=== PATIENT | female | born 1970 | race Caucasian/White ===

== ENCOUNTER 2017-01-13 21:35 | Observation (INO) | payer OTHER ==
[~2017-01-13] VITALS: Ht 167.6 cm; Wt 98.9 kg
--- NOTE | 2017-01-13 23:21 | NUR ---
PT TO ED WITH C/O HEMATURIA X4 DAYS, WITH INCREASED ARUNA LOWER BACK PAIN, CONSTIPATION WITH LAST BM 7 DAYS AGO. PT STATES TO FEELING GEN WEAKNESS. PT STATES TO URINARY FREQUENCY, RETENTION, AND URGENCY. PT A&OX4,NO ACUTE DSITRSS NOTED, RESP EVEN AND UNLABORED, AMBULATED TO RESTROOM TO PROVIDE URINE SPECIMEN.
[2017-01-14 00:29] LABS: UA SPECIFIC GRAVITY 1.025 (1.005-1.035); microscopic required? YES; urine erythrocyte 3+ (NEGATIVE)
--- NOTE | 2017-01-14 00:35 | NUR ---
PT AMBULATED TO RESTROOM TO PROVIDE URINE SAMPLE
--- NOTE | 2017-01-14 00:36 | NUR ---
PT OOB TO RESTROOM
[2017-01-14 00:39] LABS: BASOPHIL % 0.5 % (0-2)
[2017-01-14 00:43] LABS: CALCIUM 8.8 mg/dL (8.5-10.1); CARBON DIOXIDE 22.4 mmol/L (21-32); CHLORIDE SERUM 106 mmol/L (98-107); CREATININE SERUM 0.8 mg/dL (0.6-1.0); GFR1 > 60 mL/min; GLUCOSE SERUM 96 mg/dL (74-106); POTASSIUM SERUM 3.4 mmol/L (3.5-5.1); SODIUM SERUM 141 mmol/L (136-145)
[2017-01-14 00:46] LABS: PLATELET COUNT 322 x10^3mcL (130-400); RED CELL DISTRIBUTION WIDTH 14.3 % (11.5-14.5)
[2017-01-14 00:49] LABS: ALBUMIN 3.8 g/dL (3.4-5.0); ALKALINE PHOSPHATASE 70 U/L (46-116); ALT/SGPT 26 U/L (14-59); AST/SGOT 18 U/L (15-37); BILIRUBIN TOTAL 0.2 mg/dL (0.20-1.00); TOTAL PROTEIN, SERUM 7.1 g/dL (6.4-8.2); URIC ACID 3.2 mg/dL (2.6-6.0)
[2017-01-14] MEDS ORDERED: CYMBALTA20 M1 PO (02:09)
[2017-01-14] MEDS ORDERED: WEL75 (02:09)
[2017-01-14] MEDS ORDERED: TOPAMAX100 MG PO (02:09)
[2017-01-14] MEDS ORDERED: SYNTHROID0.125 MG PO (02:10)
--- NOTE | 2017-01-14 02:35 | NUR ---
REPORT GIVEN TO BERENICE MARTIN TO ASSUME CARE OF PT.
--- NOTE | 2017-01-14 02:52 | NUR ---
PT MEDICATED FOR PAIN AT THIS TIME. DUE TO C/O BACK PAIN RATING /10. VERONICA NG MADE AWARE.
--- NOTE | 2017-01-14 03:00 | NUR ---
RECEIVED PT FROM ED VIA GURNEY ACCOMPANIED BY NURSE. C/O BACK PAIN. PT STATED SHE DOESN'T NEED PAIN MEDICATION AT THIS TIME SINCE SHE JUST GOT MEDICATED IN ER. NO RESPIRATORY DISTRESS ON ROOM AIR. IV ON LAC, NS INFUSING. ORIENTED PT TO ROOM. DEMONSTRATED HOW TO CALL IF ASSISTANCE IS NEEDED. BED IN LOWEST POSITION. SIDE RAILS UP X2. CALL LIGHT WITHIN REACH. AT BEDSIDE. WILL CONTINUE TO MONITOR.
--- NOTE | 2017-01-14 03:07 | NUR ---
PT TRANSFERRED TO TELE BED VIA [facility] WITH RN ANTONI AND EMT REYNALDO AT PT SIDE. PT ON CM AT TIME OF TRANSFER. PT A&XO4,NO ACUTE DISTRESS NOTED, RESP EVEN AND UNLABORED, TRANSFERRED WITHOUT INCIDENCE.
[2017-01-14 03:13] VITALS: BP 119/63
[2017-01-14 04:08] VITALS: BP 119/63
[2017-01-14 04:13] LABS: MAGNESIUM 2.1 mg/dL (1.8-2.4); PHOSPHOROUS 3.5 mg/dL (2.5-4.9)
[2017-01-14 04:20] LABS: CHOLESTEROL/HDL RATIO 2.1
[2017-01-14 04:22] LABS: FREE T4 0.98 ng/dL (0.76-1.46); FREE THYROXINE INDEX 2.1 ug/dL (1.4-4.5); T4(THYROXINE) 6.7 ug/dL (4.7-13.3)
[2017-01-14 04:35] LABS: AMPHETAMINE QUAL UR POSITIVE (NEG <=1000)
[2017-01-14 04:59] LABS: T3 TOTAL 1.15 ng/mL
[2017-01-14 06:37] VITALS: BP 101/62
--- NOTE | 2017-01-14 06:50 | NUR ---
PT SLEPT ON AND OFF DURING SHIFT. C/O BACK PAIN, MEDICATED WITH MORPHINE X1. SAFETY MEASURES MAINTAINED. CALL LIGHT WITHIN REACH. WILL ENDORSE CONTINUITY OF CARE TO ONCOMING RN.
--- NOTE | 2017-01-14 08:00 | NUR ---
A/A/OX3; C/O HEADACHE ON 10/02 AND DIDN'T SLEEP WELL LAST NIGHT. TELE#28 =80; HR =80; NO RESP DISTRESS ON RA. BACK PAIN ON AND OFF. NPO PER ORDER. IVF OF NS 100CC/HR INFUSING WELL TO LAC. IV SITE CLEAN. AMBULATORY. NO ABD PAIN NOW. CALL LIGHT IN REACH.
--- NOTE | 2017-01-14 09:55 | NUR ---
C/O MIGRAINE HEADACHE ON 12/02. NORCO 7.5/325 PO GIVEN. CONTINUE MONITOR.
--- NOTE | 2017-01-14 10:00 | NUR ---
DR. CHAMPION AND MEDICAL TEAM MADE MORNING ROUND. PLAN OF CARE DISCUSSED WITH PATIENT, INCLUDED WITH UROLOGIST CONSULTATION WITH DR. HOPKINS. PATIENT AGREED WITH PLAN OF CARE.
--- NOTE | 2017-01-14 12:00 | NUR ---
PATIENT REQUESTED NEW IV DUE TO IV BEEPING IF BANDED L ARM. IVHL'D TO L AC. NEW IV INSERTED TO L HAND WITH 22G NEEDLE.
[2017-01-14 17:50] VITALS: BP 115/66
--- NOTE | 2017-01-14 18:48 | NUR ---
AWAKE AND C/O HEADACH. TORADOL 30MG IVP GIVEN. DR. HOPKINS SAW PATIENT.
--- NOTE | 2017-01-14 19:20 | NUR ---
RECEIVED REPORT FROM DAY SHIFT RN. PT SITTING UP IN BED EATING DINNER. TORADOL GIVEN FOR HEADACHE AT 1854. WILL CONTINUE TO MONITOR. IV ON L HAND, NS INFUSING. SAFETY MEASURES IN PLACE. INSTRUCTED TO CALL IF ASSISTANCE IS NEEDED. CALL LIGHT WITHIN REACH.
--- NOTE | 2017-01-14 19:23 | NUR ---
C/O NAUSEA. ZOFRAN 4MG IVP GIVEN. REGULAR DIET. ENDORSED CARE TO NOC NURSE.
[2017-01-15 05:40] VITALS: BP 101/63
[2017-01-15 06:00] VITALS: BP 100/63
--- NOTE | 2017-01-15 07:00 | NUR ---
PT WS ENDORSE TO ME THIS MORNING. PT SITTING UP IN BED WATCHING TV. PT BREATHING EVEN AND UNLABORED. NO RESP DISTRESS NOTED. TELE 28 SR. IV TO THE L HAND NS 100ML/HR. NO RED OR SWELLING NOTE. CALL LIGHT IN REACH. BED IN LOW POSITION. WILL CONINTUE PLAN OF CARE.
--- NOTE | 2017-01-15 07:10 | NUR ---
PT SLEPT AT LONG INTERVALS DURING SHIFT. C/O HEADACHE, TORADOL GIVEN X1. STRAINED BLOODY COLORED URINE, NO CALCULUS NOTED. SAFETY MEASURES MAINTAINED. ALL NEEDS ATTENDED TO. CALL LIGHT WITHIN REACH. WILL ENDORSE CONTINUITY OF CARE TO DAY SHIFT RN.
[2017-01-15 07:27] LABS: CALCIUM 8.3 mg/dL (8.5-10.1); CARBON DIOXIDE 23.3 mmol/L (21-32); CHLORIDE SERUM 111 mmol/L (98-107); CREATININE SERUM 0.8 mg/dL (0.6-1.0); GFR1 > 60 mL/min; GLUCOSE SERUM 107 mg/dL (74-106); POTASSIUM SERUM 4.3 mmol/L (3.5-5.1); SODIUM SERUM 144 mmol/L (136-145)
[2017-01-15 07:33] LABS: BASOPHIL % 0.5 % (0-2); PLATELET COUNT 279 x10^3mcL (130-400); RED CELL DISTRIBUTION WIDTH 14.4 % (11.5-14.5)
[2017-01-15 09:20] VITALS: BP 108/65
--- NOTE | 2017-01-15 09:44 | NUR ---
PT C/O ABD AND BACK PAIN 01/01. WILL MEDICATE.
--- NOTE | 2017-01-15 14:39 | NUR ---
Initial Nutrition Assessment Dx: infected kidney stone. PMHx: Depression, hypothyroidism. PSHx:? Not stated on H&P Labs: (01/15)B, BUN:6.0L, Ca:8.3L, HDL:75H, H/H:11.3/34L, Meds: Colace, KCL. Lactinex, Milk of Magnesia, NS IVF, Synthroid, Zofran, Diet:Regular PO Intake:None recorded. Ht: 66in, 5'6 Wt: 220#, 98.88kg BMI:35.2kg/m2 (obesity classII) IBW: 130#59kg %IBW: 169% UBW:215# x 2 yrs. Age:46 Food Allergies:None Skin:intact Deandre:20 Edema:None GI: Active bowel sounds. Last BM 01/06 Nursing trigger: poor PO intake>3days. Pt was admitted with UTI likely 2/[address] of abd showed no evidence of hydronephrosis with right uretopelvic junction calculus, per H&P. Per urologist, pt's abd and back pain are not likely 2/2 non obstructing stone, it may be the cause of her hematuria. Pt to follow outpatient urologist in 2wks. During visit, pt c/o constipation with no BM x 10 days. She is on Colace and was given Milkof Magnesia this morning and still has not had a BM, is not passing gas and does not feel like she has to go. Pt is pending discharge until she has a BM. Pt reports improved appetite due to not feeling nauseaus anymore and was observed eating ~90% of her lunch. Pt reported to eating >75% of her breakfast this morning. Problem with: N: yes, on Zofran. V: No D: No C: Yes, no BM x 10 days. Problems with: Chewing:No Swallowing: No Current appetite: Fair Recent wt change:5# wt loss %wt change:-2.27% Vitamin/Supplement use: MVI and B12. Special diet at home: Pt follows a balanced diet at home, eats a lot of fruits, vegetables and lean protein. Physical activity: Pt reports to going to the gym once in a while but has not gone due to not feeling well. Education: Went over foods high in fiber for pts constipation and the importance of drinking more fluids and ambulating. Also provided pt with education on kidney stones. Estimated Nutritional Needs Based on adjusted body weight 69kg Energy: 9188-7221 kcal/d (25-30kcal/kg for maintenance) Protein: 55-69g/d (0.8-1.0g/kg for adult maintenance) Fluid: 1865-5220 ml/d (1 ml/kcal) or per doctor Nutrition Diagnosis 1. Altered GI function related to unknown etiology as evidenced by pt with constipation and no BM x 10 days. Intervention 1.Continue with current Regular diet. 2. Recommend adjust bowel regimen PRN due to pt constipated. Monitor/Evaluate Goal: PO intake at least 75% of estimated needs Monitor: PO intake, Labs, GI function F/U in 7 days as low risk 01/22
[2017-01-15] MEDS ORDERED: APAP/HYDROCODON1 T13 PO (15:37)
[2017-01-15] MEDS ORDERED: LAC PO (15:37)
[2017-01-15] MEDS ORDERED: FLO4 PO (15:39)
[2017-01-15] MEDS ORDERED: LEVOFLOXACIN500 M1 PO (15:40)
--- NOTE | 2017-01-15 15:54 | NUR ---
PER DOCTORS ORDER WILL ADMINISTER ENEMA TO PT.
--- NOTE | 2017-01-15 16:37 | NUR ---
PT WAS ABLE TO HAVE A BM.
[2017-01-15 16:41] VITALS: BP 108/65
--- NOTE | 2017-01-15 17:15 | NUR ---
EXPLAINED DISCHARGED INSTRUCTIONS TO PT. PT AGREED AND SIGNED ALL DOCUMENTS. REMOVED TELE AND IV. PT TOLERATED WELL. PT WILL CALL THE NURSES STATION WHEN SHE IS READY TO LEAVE.
--- NOTE | 2017-01-15 18:09 | NUR ---
PT IS A/O X4. BREATHING EVEN AND UNLABORED. PT DENIES ANY ABD OR BACK PAIN AT THIS TIME. RANDEE RICHARD WILL WALK PT TO DISCHARGE OFFICE.
== END 2017-01-15 18:20 | disposition home or self-care (01) | DRG 693 ==
LOC: ED 21:35 → DU 01-14 02:10
PROVIDERS: Emergency Medicine; ADMIT Family Medicine
DX: N20.1 Calculus of ureter (principal); N17.0 Acute kidney failure with tubular necrosis; N39.0 Urinary tract infection, site not specified; R31.0 Gross hematuria; K59.09 Other constipation; E87.6 Hypokalemia; E03.9 Hypothyroidism, unspecified; F41.8 Other specified anxiety disorders; F32.9 Major depressive disorder, single episode, unspecified
CPT/HCPCS: 84439; G0378; J1885; J1956; J2270; J2405; J3010; J3490; J7030; Q0092